=== PATIENT | female | born 2000 | race American Indian/Alaskan Native ===

== ENCOUNTER 2024-04-24 08:05 | Emergency (ER) | payer MEDICAID, OTHER ==
[2024-04-24] MEDS ORDERED: Lidocaine 1% (PF) 30 ML VIAL ONE (08:34)
== END 2024-04-24 09:15 | disposition home or self-care (01) ==
LOC: NAV ERS 08:05
DX: L05.01 Pilonidal cyst with abscess (principal)
CPT/HCPCS: 10080; J2001

== ENCOUNTER 2024-04-26 12:18 | Emergency (ER) | payer MEDICAID | END 2024-04-26 13:18 | disposition home or self-care (01) | LOC: NAV ERS 12:18 | DX: L05.01 Pilonidal cyst with abscess (principal) | CPT/HCPCS: 10080 ==